=== PATIENT | female | born 1995 | race Caucasian/White ===

== ENCOUNTER 2023-07-20 01:34 | Inpatient (IN) | payer OTHER ==
[~2023-07-20] VITALS: Ht 134.6 cm; Wt 47.5 kg
[~2023-07-20 01:34] MED LIST: NOCURR
[2023-07-20] MEDS ORDERED: LevETIRAcetam 1,500 MG in DEXTROSE 5%-WATER 100 ML IV ONE (02:15)
[2023-07-20 02:33] LABS: BASOPHILS % (AUTO) 1.1 % (0.0-2.0); EOSINOPHILS % (AUTO) 3.4 % (1.0-6.0); HEMATOCRIT 35.5 % (36-46); HEMOGLOBIN 11.8 g/dL (12.0-16.0); LYMPHOCYTES # (AUTO) 4.1 K/uL (1.0-4.8); LYMPHOCYTES % (AUTO) 38.3 % (22.0-44.0); MEAN CORPUSCULAR HEMOGLOBIN 28.4 pg (26.0-34.0); MEAN CORPUSCULAR HGB CONC 33.2 G/dL (31.0-37.0); MEAN CORPUSCULAR VOLUME 86 fL (80-100); MONOCYTES # (AUTO) 1.2 K/uL (0.1-1.0); MONOCYTES % (AUTO) 11.4 % (2.0-9.0); NEUTROPHILS % (AUTO) 45.8 % (40.0-70.0); PLATELET COUNT (AUTO) 395 K/uL (150-450); RED BLOOD CELL COUNT(AUTO) 4.15 MIL/uL (4.00-5.20); RED CELL DISTRIBUTION WIDTH 14.7 % (11.5-14.5); WHITE BLOOD COUNT (AUTO) 10.8 K/uL (4.5-11.0)
[2023-07-20 02:43] LABS: COVID AG,FIA SOURCE NASAL SWAB
[2023-07-20 02:45] LABS: ANION GAP 3 mmol/L (8-16); CALCIUM, TOTAL 8.8 mg/dL (8.8-10.5); CARBON DIOXIDE 32 mmol/L (22-29); CHLORIDE 102 mmol/L (98-107); GLOMERULAR FILTR. RATE CALC > 60 mL/min (>60); GLUCOSE,RANDOM 126 mg/dL (70-110); POTASSIUM 4.2 mmol/L (3.5-5.1); SODIUM SERUM 137 mmol/L (136-145); UREA NITROGEN, BLOOD 16 mg/dL (7-18)
[2023-07-20] MEDS ORDERED: 0.9% SODIUM CHLORIDE 10 ML SYRINGE IVP PRN (02:45)
[2023-07-20] MEDS ORDERED: ACETAMINOPHEN 325 MG TABLET PO PRN ×2 (02:45→10:30)
[2023-07-20 02:51] LABS: ALANINE AMINOTRANSFERASE 38 U/L (12-78); ALKALINE PHOSPHATASE 124 U/L (46-116); ASPARTATE AMINOTRANSFERASE 22 U/L (15-37); BILIRUBIN,TOTAL 0.2 mg/dL (0.1-1.0)
[2023-07-20 03:01] LABS: ALBUMIN 3.4 g/dL (3.4-5.0)
[2023-07-20 03:11] LABS: SARS-COV2 (COVID) ANTIGEN,FIA Negative (Negative)
[2023-07-20 03:53] LABS: APPEARANCE,URINE CLEAR (CLEAR); BILIRUBIN,URINE NEGATIVE (NEGATIVE); COLOR,URINE LIGHT YELLOW (YELLOW); GLUCOSE, URINE (UA) NEGATIVE (NEGATIVE); KETONES,URINE NEGATIVE (NEGATIVE); LEUKOCYTE ESTERASE ,URINE NEGATIVE (NEGATIVE); NITRATE,URINE NEGATIVE (NEGATIVE); OCCULT BLOOD,URINE NEGATIVE (NEGATIVE); PH,URINE 6.5 (5.0-8.0); PH,URINE DRUG SCREEN 6.5 (5.0-8.0); PROTEIN,URINE NEGATIVE (NEGATIVE); SPECIFIC GRAVITIY, URINE 1.012 (1.003-1.030); UROBILINOGEN,URINE <=1.0 mg/dL (<=1.0)
[2023-07-20 04:00] LABS: ALCOHOL, URINE DRUG SCREEN NEGATIVE (NEGATIVE); AMPHET/METH SCREEN,URINE NEGATIVE (NEGATIVE); BARBITURATE SCREEN, URINE NEGATIVE (NEGATIVE); BENZODIAZEPINES SCREEN,URINE NEGATIVE (NEGATIVE); CANNABINOID SCREEN,URINE NEGATIVE (NEGATIVE); COCAINE SCREEN,URINE NEGATIVE (NEGATIVE); METHADONE SCREEN, URINE NEGATIVE (NEGATIVE); OPIATE SCREEN,URINE NEGATIVE (NEGATIVE); PHENCYCLIDINE SCREEN,URINE NEGATIVE (NEGATIVE)
[2023-07-20 04:37] VITALS: BP 104/52; PULSE 69; RESP 18; TEMP 98.2
[2023-07-20 09:27] VITALS: BP 122/73; PULSE 75; RESP 20; TEMP 98.4
[2023-07-20] MEDS: PRENATAL NO.137/IRON/FOLIC ACID TABLET PO SCH (12:38)
[2023-07-20 17:50] VITALS: BP 103/59; PULSE 79; RESP 20; TEMP 98.2
[2023-07-20 19:40] VITALS: BP 109/64; PULSE 63; RESP 18; TEMP 98.2
[2023-07-21 03:55] VITALS: BP 108/76; PULSE 64; RESP 18; TEMP 97.8
[2023-07-21 08:07] LABS: HEPATITIS A ANTIBODY IGM Negative (Negative); HEPATITIS B CORE IGM Negative (Negative); HEPATITIS C AB (EIA) Non Reactive (Non Reactive); HIV 1-2 SCREEN 4TH GEN W/RFLX Non Reactive (Non Reactive)
[2023-07-21 08:40] VITALS: BP 98/54; PULSE 67; RESP 18; TEMP 98.2
[2023-07-21] MEDS ORDERED: LevETIRAcetam 500 MG TABLET PO SCH (09:00)
[2023-07-21] MEDS ORDERED: LevETIRAcetam 250 MG TABLET PO SCH (09:00)
[2023-07-21] MEDS ORDERED: LEVE500T20 PO (11:26)
[2023-07-21] MEDS ORDERED: PREN-217 PO (11:27)
[2023-07-21] MEDS: PRENATAL NO.137/IRON/FOLIC ACID TABLET PO SCH (11:35)
== END 2023-07-21 17:42 | DRG 101 ==
LOC: EMS 01:34 → 6S 03:03
PROVIDERS: ADMIT Internal Medicine; ATTEND Internal Medicine
DX: G40.909 Epilepsy, unspecified, not intractable, without status epilepticus (principal); D64.9 Anemia, unspecified; J45.909 Unspecified asthma, uncomplicated; Z20.822 Contact with and (suspected) exposure to COVID-19; Z79.899 Other long term (current) drug therapy; Z32.01 Encounter for pregnancy test, result positive
CPT/HCPCS: 70450; 72125; 76801; 80053; 80074; 80307; 81003; 84703; 85025; 87389; 99285; J0712; J7060

== ENCOUNTER 2023-07-29 19:09 | Emergency (ER) | payer OTHER ==
[~2023-07-29 19:09] MED LIST changes: +LEVE500T20 PO; +PREN-217 PO
== END 2023-07-29 21:00 | disposition left against medical advice (07) ==
LOC: EMS 19:15
DX: Z53.21 Procedure and treatment not carried out due to patient leaving prior to being seen by health care provider (principal)

== ENCOUNTER 2024-08-01 12:23 | Inpatient (IN) | payer MEDICAID, OTHER ==
[~2024-08-01] VITALS: Ht 152.4 cm; Wt 55.8 kg
[2024-08-01] MEDS ORDERED: CARB-92 PO (12:33)
[2024-08-01] MEDS ORDERED: DIVA250T45 PO (12:33)
[2024-08-01] MEDS ORDERED: OXCA300T70 PO (13:14)
[2024-08-01] MEDS ORDERED: TRAZ-252 PO (13:14)
[2024-08-01 13:38] LABS: APPEARANCE,URINE HAZY (CLEAR); BILIRUBIN,URINE NEGATIVE (NEGATIVE); COLOR,URINE COLORLESS (YELLOW); GLUCOSE, URINE (UA) NEGATIVE (NEGATIVE); KETONES,URINE NEGATIVE (NEGATIVE); LEUKOCYTE ESTERASE ,URINE LARGE (NEGATIVE); NITRATE,URINE NEGATIVE (NEGATIVE); OCCULT BLOOD,URINE NEGATIVE (NEGATIVE); PH,URINE 6.5 (5.0-8.0); PH,URINE DRUG SCREEN 6.5 (5.0-8.0); PROTEIN,URINE NEGATIVE (NEGATIVE); SPECIFIC GRAVITIY, URINE 1.004 (1.003-1.030); UROBILINOGEN,URINE <=1.0 mg/dL (<=1.0)
[2024-08-01 13:47] LABS: AMPHET/METH SCREEN,URINE NEGATIVE (NEGATIVE); BARBITURATE SCREEN, URINE NEGATIVE (NEGATIVE); BENZODIAZEPINES SCREEN,URINE POSITIVE (NEGATIVE); CANNABINOID SCREEN,URINE NEGATIVE (NEGATIVE); COCAINE SCREEN,URINE NEGATIVE (NEGATIVE); METHADONE SCREEN, URINE NEGATIVE (NEGATIVE); OPIATE SCREEN,URINE NEGATIVE (NEGATIVE); PHENCYCLIDINE SCREEN,URINE NEGATIVE (NEGATIVE)
[2024-08-01 13:49] LABS: ALCOHOL, URINE DRUG SCREEN NEGATIVE (NEGATIVE)
[2024-08-01 13:55] LABS: BACTERIA,URINE None Seen /HPF (None Seen); RBC,URINE None Seen /HPF (0-2); SQUAMOUS EPITHELIAL CELL,UR Few /LPF (None Seen)
[2024-08-01] MEDS: LevETIRAcetam 1,000 MG in DEXTROSE 5%-WATER 100 ML IV ONE (14:09)
[2024-08-01 14:21] LABS: BASOPHILS % (AUTO) 0.9 % (0.0-2.0); HEMATOCRIT 40.7 % (36-46); HEMOGLOBIN 13.3 g/dL (12.0-16.0); LYMPHOCYTES # (AUTO) 1.9 K/uL (1.0-4.8); LYMPHOCYTES % (AUTO) 26.6 % (22.0-44.0); MEAN CORPUSCULAR HEMOGLOBIN 28.9 pg (26.0-34.0); MEAN CORPUSCULAR HGB CONC 32.7 G/dL (31.0-37.0); MEAN CORPUSCULAR VOLUME 88 fL (80-100); MONOCYTES # (AUTO) 0.7 K/uL (0.1-1.0); MONOCYTES % (AUTO) 9.4 % (2.0-9.0); NEUTROPHILS # (AUTO) 4.5 K/uL (1.8-7.7); NEUTROPHILS % (AUTO) 62.1 % (40.0-70.0); PLATELET COUNT (AUTO) 224 K/uL (150-450); RED BLOOD CELL COUNT(AUTO) 4.62 MIL/uL (4.00-5.20); RED CELL DISTRIBUTION WIDTH 15.1 % (11.5-14.5); WHITE BLOOD COUNT (AUTO) 7.3 K/uL (4.5-11.0)
[2024-08-01] MEDS ORDERED: LORazepam 2 MG/ML VIAL IVP PRN (14:30)
[2024-08-01] MEDS ORDERED: ONDANSETRON HCL 4 MG/2 ML VIAL IVP PRN (14:30)
[2024-08-01] MEDS ORDERED: MAGNESIUM HYDROXIDE SUSPENSION 30 ML UDCUP PO PRN (14:30)
[2024-08-01 14:32] LABS: ANION GAP 4 mmol/L (8-16); CALCIUM, TOTAL 8.2 mg/dL (8.8-10.5); CARBON DIOXIDE 30 mmol/L (22-29); CHLORIDE 101 mmol/L (98-107); CREATININE 0.65 mg/dL (0.60-1.30); GLOMERULAR FILTR. RATE CALC > 60 mL/min (>60); GLUCOSE,RANDOM 88 mg/dL (70-110); SODIUM SERUM 135 mmol/L (136-145); UREA NITROGEN, BLOOD 10 mg/dL (7-18)
[2024-08-01 14:38] LABS: TROPONIN I-HIGH SENSITIVITY 5 ng/L (<51)
[2024-08-01 14:46] LABS: HCG,QUANTITATIVE 1 mIU/mL (0-6)
[2024-08-01] MEDS: LevETIRAcetam 500 MG TABLET PO SCH (20:22)
[2024-08-01 20:27] VITALS: BP 100/55; PULSE 67; RESP 17; TEMP 98.9; O2SAT 99
[2024-08-02 00:31] VITALS: BP 95/56; PULSE 55; RESP 18; TEMP 98.7; O2SAT 95
[2024-08-02] MEDS: ACETAMINOPHEN 325 MG TABLET PO PRN (04:08)
[2024-08-02 04:33] VITALS: BP 97/65; PULSE 52; RESP 17; TEMP 98.2; O2SAT 97
[2024-08-02 08:00] VITALS: BP 92/42; PULSE 48; RESP 18; TEMP 98.1; O2SAT 97
[2024-08-02] MEDS: FAMOTIDINE 20 MG TABLET PO SCH (09:11)
[2024-08-02] MEDS ORDERED: LEVE-71 PO (12:07)
[2024-08-02] MEDS ORDERED: CIPR250T6 PO (12:08)
[2024-08-02 12:29] VITALS: BP 114/60; PULSE 54; RESP 17; TEMP 98; O2SAT 96
[2024-08-02] MEDS: CefTRIAXone 1 GM/DEXTROSE 50 ML IV ONE (13:36)
[2024-08-02] MEDS: SODIUM CHLORIDE 0.9% 500 ML IV ONE (13:37)
== END 2024-08-02 17:18 | disposition home or self-care (01) | DRG 53 ==
LOC: EMS 12:23 → EDH 14:42 → 5S 18:36
PROVIDERS: ADMIT Internal Medicine; ATTEND Internal Medicine
DX: G40.909 Epilepsy, unspecified, not intractable, without status epilepticus (principal); J45.909 Unspecified asthma, uncomplicated; N39.0 Urinary tract infection, site not specified
CPT/HCPCS: 70450; 71045; 80048; 80164; 80307; 81001; 84484; 84702; 85025; 93005; 99285; G0480; J0696; J0712; J7060; 36415-L1; 36415-TC